=== PATIENT | male | born 1975 | race Caucasian/White ===

== ENCOUNTER 2016-06-23 04:13 | Emergency (ER) | payer BC | END 2016-06-23 07:40 | disposition home or self-care (01) | LOC: ER1 04:13 | DX: J32.9 Chronic sinusitis, unspecified (principal); J06.9 Acute upper respiratory infection, unspecified; F17.200 Nicotine dependence, unspecified, uncomplicated | CPT/HCPCS: 99283 ==

== ENCOUNTER 2016-07-20 11:09 | Emergency (ER) | payer BC ==
[2016-07-20 11:40] LABS: HEMOGLOBIN 17.2 gm/dl (14.0-17.5); RED BLOOD COUNT 5.77 M/UL (4.20-5.50); WHITE BLOOD COUNT 13.8 K/UL (4.5-11.0)
[2016-07-20 12:04] LABS: BUN/CREATININE RATIO 18 (0-10)
== END 2016-07-20 14:20 | disposition home or self-care (01) ==
LOC: ER1 11:09
PROVIDERS: Nurse Practitioner Family
DX: K52.9 Noninfective gastroenteritis and colitis, unspecified (principal); F17.210 Nicotine dependence, cigarettes, uncomplicated
CPT/HCPCS: 36415; 80053; 81001; 82150; 83690; 85025; 87086; 96360; 96361; 99284; J2405; J7050; Q9962

== ENCOUNTER → 2016-08-12 | Outpatient (CLI) | payer BC | LOC: CT 08-06 13:30 | DX: J32.9 Chronic sinusitis, unspecified (principal); J34.1 Cyst and mucocele of nose and nasal sinus | CPT/HCPCS: 70486 ==

== ENCOUNTER 2021-12-20 15:04 | Emergency (ER) | payer BC ==
[2021-12-20 16:45] LABS: HEMOGLOBIN 17.2 gm/dl (14.0-17.5); RED BLOOD COUNT 5.83 M/UL (4.20-5.50)
[2021-12-20 16:59] LABS: BUN/CREATININE RATIO 20 (0-10)
== END 2021-12-20 22:45 | disposition short-term general hospital (02) ==
LOC: ER1 15:04
PROVIDERS: Emergency Medicine
DX: R10.9 Unspecified abdominal pain (principal); R31.0 Gross hematuria; E87.6 Hypokalemia; E11.9 Type 2 diabetes mellitus without complications; R10.819 Abdominal tenderness, unspecified site; F17.200 Nicotine dependence, unspecified, uncomplicated; Z90.49 Acquired absence of other specified parts of digestive tract; Z51.81 Encounter for therapeutic drug level monitoring
CPT/HCPCS: 80053; 81001; 83690; 85025; 85610; 85730; 87040; 87086; 96374; 96375; 96376; 99285; J0696; J1170; J2270; J2405